=== PATIENT | male | born 1950 | race Caucasian/White ===

== ENCOUNTER 2018-09-03 07:20 | Day surgery (SDC) | payer OTHER ==
[2018-08-31 11:37] VITALS: BMI 27.3
[2018-09-03] MEDS ORDERED: MIDAZOLAM HCL 2 MG/2 ML SINGLE DOSE VIAL ONE (09:50)
[2018-09-03] MEDS ORDERED: PROPOFOL 20 ML ONE ×2 (09:55)
[2018-09-03] MEDS ORDERED: IOHEXOL 300 MG/ML INFUS..BTL IV ONE (10:10)
--- NOTE | 2018-09-03 10:39 | OP ---
Operative Note - Note: Operative Date: 09/03/18 Pre-Operative Diagnosis: bladder stone Operation: cystoscopy/laser lithotripsy of bladder stone Findings: 4+ cm bladder stone Post-Operative Diagnosis: Same as Pre-op Surgeon: Daniel Macias (\) Anesthesia: General Specimens Removed: bladder stone fragments Operative Report Dictated: Yes
[2018-09-03] MEDS ORDERED: ONDANSETRON 4 MG/2 ML VIAL IVPUSH PRN (10:59)
[2018-09-03] MEDS ORDERED: oxyCODONE HCL 5 MG TABLET PO PRN (10:59)
[2018-09-03] MEDS ORDERED: PROMETHAZINE HCL 25 MG/1 ML VIAL IVPUSH PRN (10:59)
[2018-09-03] MEDS ORDERED: LACTATED RINGERS SOLUTION 1,000 ML IV SCH (11:00)
[2018-09-03 11:58] VITALS: TEMP 97.8
[2018-09-03 13:06] VITALS: BP 117/72; PULSE 77
--- NOTE | 2018-09-03 22:14 | OP ---
DATE OF OPERATION: 09/03/2018 PREOPERATIVE DIAGNOSIS: Bladder stone. POSTOPERATIVE DIAGNOSIS: Bladder stone. PROCEDURE: Cystoscopy and laser lithotripsy of bladder stone. ATTENDING: Camden Wise MD ANESTHESIA: General. DESCRIPTION OF OPERATION: The patient was noted on office cystoscopy to have a bladder stone. The patient was brought in the operating room, placed in supine position on the operating room table. Anesthesia and preoperative antibiotics were then administered. The patient was then placed in the dorsal lithotomy position and prepped and draped in the usual sterile manner. Cystoscopy was performed, and a 4-cm bladder stone was noted. At this point, the holmium laser was utilized to fragment the stone. The fragments of the stone were sent for pathologic evaluation. There were no complications noted. No catheter was left in place. The patient tolerated the procedure very well. The disposition of the patient was to the recovery room. CAMDEN WISE M.D. [id number]
--- NOTE | 2018-09-04 16:44 | PATH ---
Surgical Pathology Report Patient Name: MATT VALDIVIA [facility]. Rec. #: [id number] /Age/Gender: 1950 (Age: 68) / M Account: [id number] Location: [facility] Taken: 09/03/2018 Received: 09/03/2018 Reported: 09/04/2018 Physicians: Daniel Macias Specimen(s) Received BLADDER CALCULI Clinical History Bladder stone Final Diagnosis BLADDER STONE, LASER LITHOTRIPSY: BLADDER CALCULI. MACROSCOPIC DIAGNOSIS. Electronically Signed Marilyn Jones M.D. Gross Description Received fresh labeled "bladder stone," is a 1.2 x 1.0 x 0.3 cm aggregate of hoffman, irregular to fragmented calculi. The specimen is sent for chemical analysis. /09/03/201809/03/2018
== END 2018-09-03 12:45 | disposition home or self-care (01) ==
LOC: JASU-SURG 07:20
PROVIDERS: ATTEND Urology
PROC: 0TCB8ZZ Extirpation of Matter from Bladder, Via Natural or Artificial Opening Endoscopic (ICD-10-PCS; principal; 2018-09-03 09:00)
DX: N21.0 Calculus in bladder (principal)
CPT/HCPCS: 36415; 82360; 88300-TC; 94760